=== PATIENT | male | born 1980 | race Caucasian/White ===

== ENCOUNTER 2020-10-23 12:18 | Inpatient (IN) | payer OTHER ==
[~2020-10-23] VITALS: Ht 180.3 cm; Wt 95.9 kg
--- NOTE | 2020-10-23 12:32 | NUR ---
EKG IN TRIAGE
--- NOTE | 2020-10-23 13:00 | NUR ---
LATE ENTRY; 40 YO MALE CAME IN WITH AFTER VISTING URGENT CARE FOR BLOODY NOSE COMPLAINTS THE LAST WEEK, FOUND TO BE HYPERENSIVE SBP IN THE 250'S BY URGENT CARE. PATIENT HOOKED UP TO ALL MONITORS. BLOOD PRESSURE 241/153. MD AWARE AND EVALUATED PATIENT. PATIENT OTHER VITALS STABLE. NO S/S OF STROKE. PATIENT POSTIONED TO COMFORT AND NADN
[2020-10-23 13:23] LABS: BASOPHILS % (AUTO) 1 % (0-1); EOSINOPHILS % (AUTO) 1 % (1-7); LYMPHOCYTES % (AUTO) 7 % (22-44); MEAN CORPUSCULAR HEMOGLOBIN 30.7 pg (27.5-34.5); MEAN CORPUSCULAR HGB CONC 36.1 g/dL (33.2-36.2); MEAN PLATELET VOLUME 7.9 fL (7.4-10.4); MONOCYTES % (AUTO) 4 % (2-9); NEUTROPHILS % (AUTO) 88 % (42-75); PLATELET COUNT 57 x10^3/uL (130-400); RED BLOOD COUNT 2.87 x10^6/uL (4.38-5.82)
[2020-10-23 13:28] LABS: ALBUMIN 3.3 g/dL (3.4-5.0); ANION GAP 15 mmol/L (5-15); CALCIUM 8.4 mg/dL (8.5-10.1); CHLORIDE 94 mmol/L (98-107)
[2020-10-23] MEDS ORDERED: LABETALOL 5MG/ML, 20ML IVPush ONE ×2 (13:30→14:30)
[2020-10-23] MEDS ORDERED: SODIUM CHLORIDE FLUSH 10ML SYR IVF ONE (13:30)
[2020-10-23 13:44] LABS: MD SCAN
[2020-10-23] MEDS ORDERED: SODIUM CHLORIDE 0.9% 1,000ML IVBOLUS ONE (14:00)
[2020-10-23] MEDS ORDERED: POTASSIUM CHLORIDE 40 MEQ in SODIUM CHLORIDE 0.9% 500 ML IV ONE (14:00)
[2020-10-23 14:06] LABS: TROPONIN I 0.297 ng/mL (0.000-0.045)
[2020-10-23 14:19] LABS: MICROSCOPIC AUTO
[2020-10-23] MEDS ORDERED: NITROGLYCERIN OINT 2%, 1GM TP ONE ×2 (14:22→14:30)
[2020-10-23] MEDS ORDERED: LABETALOL 5MG/ML, 20ML ONE (14:22)
[2020-10-23] MEDS ORDERED: hydrALAzine 20 MG/ML, 1ML ONE (14:22)
[2020-10-23] MEDS ORDERED: ASPIRIN 81 MG TABLET CHEW PO ONE (14:30)
[2020-10-23] MEDS ORDERED: hydrALAzine 20 MG/ML, 1ML IV ONE (14:30)
[2020-10-23] MEDS ORDERED: ASPIRIN 81 MG TABLET CHEW ONE (14:33)
--- NOTE | 2020-10-23 14:33 | NUR ---
patient medicated per emar, patient still hypertensive bp 213/131, ultra sound at bedside.
--- NOTE | 2020-10-23 14:47 | NUR ---
REPORT GIVEN TO SHAMA EMANUEL
[2020-10-23] MEDS ORDERED: ONDANSETRON ODT 4 MG PO PRN (15:00)
[2020-10-23] MEDS ORDERED: ONDANSETRON 2MG/ML, 2ML IVPush PRN (15:00)
--- NOTE | 2020-10-23 15:20 | NUR ---
NITRO PASTE REMOVED PER HOSPITALIST AFTER PATIENT COMPLAINTS OF N/V AND DIZZINESS.
[2020-10-23] MEDS ORDERED: NITROGLYCERIN OINT 2%, 1GM TP PRN (15:30)
[2020-10-23 15:32] LABS: TROPONIN I 0.284 ng/mL (0.000-0.045)
[2020-10-23 15:37] VITALS: BP 162/88
[2020-10-23 15:50] VITALS: BP 168/88
[2020-10-23 18:00] VITALS: BP 184/104
[2020-10-23 18:15] VITALS: BP 175/96
[2020-10-23] MEDS: hydrALAzine 20 MG/ML, 1ML IV PRN (18:18)
[2020-10-23 18:54] LABS: CALCIUM 8.5 mg/dL (8.5-10.1)
[2020-10-23] MEDS: ACETAMINOPHEN 325 MG TABLET PO PRN (20:01)
[2020-10-23 20:47] VITALS: BP 157/77
[2020-10-23] MEDS: LOSARTAN 50MG TABLET PO SCH (21:19)
[2020-10-23] MEDS: POTASSIUM CHLORIDE 20 MEQ TAB.ER.PRT PO SCH (21:19)
[2020-10-23 23:57] LABS: MICROSCOPIC AUTO
[2020-10-24 00:07] LABS: CHLORIDE,URINE RANDOM 41 mmol/L; POTASSIUM,URINE RANDOM 22 mmol/L; SODIUM,URINE RANDOM 41 mmol/L
[2020-10-24 00:21] VITALS: BP 170/103
[2020-10-24] MEDS: LABETALOL 5MG/ML, 20ML IVPush PRN (00:40)
[2020-10-24] MEDS: ACETAMINOPHEN 325 MG TABLET PO PRN (04:17)
[2020-10-24 04:58] VITALS: BP 137/79
[2020-10-24 05:07] LABS: BASOPHILS % (AUTO) 0 % (0-1); EOSINOPHILS % (AUTO) 0 % (1-7); LYMPHOCYTES % (AUTO) 9 % (22-44); MEAN CORPUSCULAR HEMOGLOBIN 31.1 pg (27.5-34.5); MEAN CORPUSCULAR HGB CONC 35.9 g/dL (33.2-36.2); MEAN PLATELET VOLUME 7.7 fL (7.4-10.4); MONOCYTES % (AUTO) 4 % (2-9); NEUTROPHILS % (AUTO) 86 % (42-75); PLATELET COUNT 65 x10^3/uL (130-400); RED BLOOD COUNT 2.48 x10^6/uL (4.38-5.82); RED CELL DISTRIBUTION WIDTH 16.5 % (9.4-14.8)
[2020-10-24 05:20] LABS: INTERNATIONAL NORMALIZED RATIO 1.08 (0.93-1.1); PROTHROMBIN TIME 11.5 Seconds (9.6-11.5)
[2020-10-24 05:23] LABS: ANION GAP 12 mmol/L (5-15); CALCIUM 8.1 mg/dL (8.5-10.1); CHLORIDE 98 mmol/L (98-107); MD NO
[2020-10-24 05:38] LABS: % IRON SATURATION 18 % (20-55); ALANINE AMINOTRANSFERASE 15 U/L (12-78); ALBUMIN 2.8 g/dL (3.4-5.0); ALKALINE PHOSPHATASE 60 U/L (45-117); BILIRUBIN,TOTAL 0.8 mg/dL (0.2-1.0); CREATININE 8.43 mg/dL (0.7-1.3); IRON LEVEL 43 mcg/dL (65-175); TOTAL IRON BINDING CAPACITY 245 mcg/dL (250-450); TOTAL PROTEIN 6.1 g/dL (6.4-8.2)
[2020-10-24 06:15] VITALS: BP 146/83
[2020-10-24] MEDS: POTASSIUM CHLORIDE 20 MEQ TAB.ER.PRT PO SCH ×2 (08:02→17:09)
[2020-10-24] MEDS: LOSARTAN 50MG TABLET PO SCH ×2 (08:03→21:52)
[2020-10-24] MEDS: CALCITRIOL 0.25 MCG CAPSULE PO SCH (13:47)
[2020-10-24] MEDS: MULTIVITS,STRESS FORMULA 1 TABLET PO SCH (13:47)
[2020-10-24] MEDS: ERGOCALCIFEROL 50,000 UNIT CAPSULE PO SCH (13:48)
[2020-10-24] MEDS: AMLODIPINE 5 MG TABLET PO SCH ×2 (13:48→21:52)
[2020-10-24] MEDS: IRON SUCROSE COMPLEX 100MG/5ML IV SCH (13:48)
[2020-10-24 13:55] VITALS: BP 133/83
[2020-10-24 14:43] LABS: MICROSCOPIC INDICATED
[2020-10-24 14:49] LABS: CREATININE,URINE RANDOM 86.2 mg/dL
[2020-10-24 17:54] LABS: ANA SCREEN NEGATIVE (Negative)
[2020-10-24 19:20] VITALS: BP 157/93
[2020-10-24 21:51] VITALS: BP 155/97
[2020-10-24] MEDS: TRAZODONE 50MG TABLET PO PRN (21:52)
[2020-10-25 02:35] VITALS: BP 162/97
[2020-10-25 05:45] LABS: BASOPHILS % (AUTO) 1 % (0-1); EOSINOPHILS % (AUTO) 3 % (1-7); LYMPHOCYTES % (AUTO) 19 % (22-44); MEAN CORPUSCULAR HEMOGLOBIN 30.8 pg (27.5-34.5); MEAN CORPUSCULAR HGB CONC 34.4 g/dL (33.2-36.2); MEAN PLATELET VOLUME 8.5 fL (7.4-10.4); MONOCYTES % (AUTO) 8 % (2-9); NEUTROPHILS % (AUTO) 69 % (42-75); PLATELET COUNT 112 x10^3/uL (130-400); RED BLOOD COUNT 2.64 x10^6/uL (4.38-5.82); RED CELL DISTRIBUTION WIDTH 16.3 % (9.4-14.8)
[2020-10-25 05:47] LABS: MD NO
[2020-10-25 05:56] LABS: CHLORIDE 100 mmol/L (98-107)
[2020-10-25 06:13] LABS: ALBUMIN 2.7 g/dL (3.4-5.0); ANION GAP 8 mmol/L (5-15); CALCIUM 8.2 mg/dL (8.5-10.1); CREATININE 7.12 mg/dL (0.7-1.3)
[2020-10-25 08:03] VITALS: BP 167/109
[2020-10-25 12:39] VITALS: BP 163/99
[2020-10-25] MEDS: AMLODIPINE 5 MG TABLET PO SCH ×2 (12:50→20:07)
[2020-10-25] MEDS: CALCITRIOL 0.25 MCG CAPSULE PO SCH (12:51)
[2020-10-25] MEDS: LOSARTAN 50MG TABLET PO SCH ×2 (12:51→20:07)
[2020-10-25] MEDS: IRON SUCROSE COMPLEX 100MG/5ML IV SCH (12:51)
[2020-10-25] MEDS: MULTIVITS,STRESS FORMULA 1 TABLET PO SCH (12:51)
[2020-10-25] MEDS: POTASSIUM CHLORIDE 20 MEQ TAB.ER.PRT PO SCH ×2 (12:51→17:00)
[2020-10-25 19:15] VITALS: BP 176/117
[2020-10-25 20:03] VITALS: BP 184/122
[2020-10-25] MEDS: TRAZODONE 50MG TABLET PO PRN (21:43)
[2020-10-25 21:45] VITALS: BP_SYST 182; BP_SYST 199; BP_DIAS 105; BP_DIAS 131
[2020-10-25] MEDS: hydrALAzine 20 MG/ML, 1ML IV PRN (21:56)
[2020-10-25] MEDS: LABETALOL 5MG/ML, 20ML IVPush PRN (22:58)
[2020-10-26] VITALS (11 sets, daily range): BP systolic 123–180; BP diastolic 70–114
[2020-10-26 05:26] LABS: ALBUMIN 2.9 g/dL (3.4-5.0); ANION GAP 6 mmol/L (5-15); CALCIUM 8.6 mg/dL (8.5-10.1); CHLORIDE 100 mmol/L (98-107); CREATININE 5.95 mg/dL (0.7-1.3)
[2020-10-26] MEDS: CALCITRIOL 0.25 MCG CAPSULE PO SCH (08:59)
[2020-10-26] MEDS: MULTIVITS,STRESS FORMULA 1 TABLET PO SCH (08:59)
[2020-10-26] MEDS: AMLODIPINE 5 MG TABLET PO SCH (08:59)
[2020-10-26] MEDS: LOSARTAN 50MG TABLET PO SCH ×2 (08:59→20:57)
[2020-10-26] MEDS: IRON SUCROSE COMPLEX 100MG/5ML IV SCH (08:59)
[2020-10-26] MEDS: POTASSIUM CHLORIDE 20 MEQ TAB.ER.PRT PO SCH ×2 (08:59→16:34)
[2020-10-26] MEDS: LABETALOL 5MG/ML, 20ML IVPush PRN (09:45)
[2020-10-26] MEDS: FUROSEMIDE 80 MG TABLET PO SCH (11:23)
[2020-10-26] MEDS: LABETALOL 200 MG TABLET PO SCH ×2 (11:24→20:57)
[2020-10-26] MEDS: AMLODIPINE 10 MG TAB PO SCH (20:57)
[2020-10-27 01:13] VITALS: BP 132/72
[2020-10-27 05:15] LABS: BASOPHILS % (AUTO) 1 % (0-1); EOSINOPHILS % (AUTO) 5 % (1-7); LYMPHOCYTES % (AUTO) 15 % (22-44); MEAN CORPUSCULAR HGB CONC 34.3 g/dL (33.2-36.2); MEAN PLATELET VOLUME 7.9 fL (7.4-10.4); MONOCYTES % (AUTO) 5 % (2-9); NEUTROPHILS % (AUTO) 74 % (42-75); PLATELET COUNT 146 x10^3/uL (130-400); RED BLOOD COUNT 2.48 x10^6/uL (4.38-5.82); RED CELL DISTRIBUTION WIDTH 16.1 % (9.4-14.8)
[2020-10-27 05:21] LABS: ALBUMIN 2.7 g/dL (3.4-5.0); CALCIUM 8.5 mg/dL (8.5-10.1); CHLORIDE 98 mmol/L (98-107); MD NO
[2020-10-27 05:24] LABS: ANION GAP 10 mmol/L (5-15); CREATININE 7.92 mg/dL (0.7-1.3)
[2020-10-27 06:51] VITALS: BP 150/79
[2020-10-27] MEDS ORDERED: FENTANYL PF 100 MCG/2ML ONE ×3 (08:36→11:02)
[2020-10-27] MEDS ORDERED: FLUMAZENIL 0.1 MG/1 ML, 5ML ONE ×2 (08:36→11:02)
[2020-10-27] MEDS ORDERED: MIDAZOLAM 1 MG/ML, 5ML ONE ×2 (08:36→11:02)
[2020-10-27] MEDS ORDERED: NALOXONE 1 MG/ML, 2ML ONE ×2 (08:36→11:02)
[2020-10-27 10:15] VITALS: BP 143/88
[2020-10-27] MEDS: CALCITRIOL 0.25 MCG CAPSULE PO SCH (10:32)
[2020-10-27] MEDS: POTASSIUM CHLORIDE 20 MEQ TAB.ER.PRT PO SCH (10:32)
[2020-10-27] MEDS: MULTIVITS,STRESS FORMULA 1 TABLET PO SCH (10:33)
[2020-10-27] MEDS: FUROSEMIDE 80 MG TABLET PO SCH (10:33)
[2020-10-27] MEDS ORDERED: LIDOCAINE 1%, 20ML ONE (11:07)
[2020-10-27] MEDS ORDERED: LIDOCAINE 1%, 10ML ONE (11:07)
[2020-10-27] MEDS ORDERED: CEFAZOLIN PMX 1GM/50ML 50 ML ONE (11:11)
[2020-10-27 12:08] VITALS: BP 145/76
[2020-10-27] MEDS: LOSARTAN 50MG TABLET PO SCH ×2 (15:26→20:21)
[2020-10-27] MEDS: AMLODIPINE 10 MG TAB PO SCH ×2 (15:27→20:21)
[2020-10-27] MEDS: LABETALOL 200 MG TABLET PO SCH ×2 (15:27→20:21)
[2020-10-27 19:56] VITALS: BP 123/87
[2020-10-27] MEDS: TRAZODONE 50MG TABLET PO PRN (21:36)
[2020-10-28] VITALS (8 sets, daily range): BP systolic 107–156; BP diastolic 68–89
[2020-10-28 04:39] LABS: BASOPHILS % (AUTO) 1 % (0-1); EOSINOPHILS % (AUTO) 5 % (1-7); LYMPHOCYTES % (AUTO) 17 % (22-44); MEAN CORPUSCULAR HEMOGLOBIN 31.1 pg (27.5-34.5); MEAN CORPUSCULAR HGB CONC 34.5 g/dL (33.2-36.2); MEAN PLATELET VOLUME 7.5 fL (7.4-10.4); MONOCYTES % (AUTO) 7 % (2-9); NEUTROPHILS % (AUTO) 70 % (42-75); PLATELET COUNT 170 x10^3/uL (130-400); RED BLOOD COUNT 2.53 x10^6/uL (4.38-5.82); RED CELL DISTRIBUTION WIDTH 16.2 % (9.4-14.8)
[2020-10-28 04:41] LABS: MD NO
[2020-10-28 04:47] LABS: ALANINE AMINOTRANSFERASE 22 U/L (12-78); ALBUMIN 2.7 g/dL (3.4-5.0); ANION GAP 7 mmol/L (5-15); CALCIUM 7.8 mg/dL (8.5-10.1); CHLORIDE 99 mmol/L (98-107); CREATININE 5.65 mg/dL (0.7-1.3)
[2020-10-28 04:49] LABS: ALKALINE PHOSPHATASE 48 U/L (45-117); BILIRUBIN,TOTAL 0.3 mg/dL (0.2-1.0); TOTAL PROTEIN 5.6 g/dL (6.4-8.2)
[2020-10-28] MEDS: MULTIVITS,STRESS FORMULA 1 TABLET PO SCH (09:19)
[2020-10-28] MEDS: CALCITRIOL 0.25 MCG CAPSULE PO SCH (09:19)
[2020-10-28] MEDS: FUROSEMIDE 80 MG TABLET PO SCH (09:19)
[2020-10-28] MEDS: AMLODIPINE 10 MG TAB PO SCH ×2 (10:57→20:38)
[2020-10-28] MEDS: LOSARTAN 50MG TABLET PO SCH (20:38)
[2020-10-28] MEDS: LABETALOL 100 MG TABLET PO SCH (20:39)
[2020-10-28] MEDS ORDERED: LABETALOL 200 MG TABLET PO SCH (21:00)
[2020-10-28] MEDS: TRAZODONE 50MG TABLET PO PRN (22:03)
[2020-10-29 01:32] VITALS: BP 130/72
[2020-10-29 07:15] VITALS: BP 118/71
[2020-10-29] MEDS: LOSARTAN 50MG TABLET PO SCH ×2 (09:00→19:56)
[2020-10-29] MEDS: LABETALOL 100 MG TABLET PO SCH ×2 (09:00→19:54)
[2020-10-29] MEDS: MULTIVITS,STRESS FORMULA 1 TABLET PO SCH (09:34)
[2020-10-29] MEDS: AMLODIPINE 10 MG TAB PO SCH ×2 (09:34→19:56)
[2020-10-29] MEDS: CALCITRIOL 0.25 MCG CAPSULE PO SCH (09:34)
[2020-10-29] MEDS: FUROSEMIDE 80 MG TABLET PO SCH (09:35)
[2020-10-29 12:32] VITALS: BP 132/80
[2020-10-29 19:43] VITALS: BP 168/82
[2020-10-29 22:29] VITALS: BP 138/78
[2020-10-29] MEDS: TRAZODONE 50MG TABLET PO PRN (22:33)
[2020-10-30 00:08] VITALS: BP 135/75
[2020-10-30 06:29] LABS: BASOPHILS % (AUTO) 1 % (0-1); EOSINOPHILS % (AUTO) 6 % (1-7); LYMPHOCYTES % (AUTO) 19 % (22-44); MEAN CORPUSCULAR HEMOGLOBIN 31.5 pg (27.5-34.5); MEAN CORPUSCULAR HGB CONC 34.4 g/dL (33.2-36.2); MEAN PLATELET VOLUME 7.7 fL (7.4-10.4); MONOCYTES % (AUTO) 8 % (2-9); NEUTROPHILS % (AUTO) 67 % (42-75); PLATELET COUNT 188 x10^3/uL (130-400); RED BLOOD COUNT 2.42 x10^6/uL (4.38-5.82); RED CELL DISTRIBUTION WIDTH 16.2 % (9.4-14.8)
[2020-10-30 06:36] LABS: ALBUMIN 2.8 g/dL (3.4-5.0); ANION GAP 11 mmol/L (5-15); CALCIUM 8.3 mg/dL (8.5-10.1); CHLORIDE 99 mmol/L (98-107)
[2020-10-30 06:48] LABS: % IRON SATURATION 23 % (20-55); CREATININE 9.03 mg/dL (0.7-1.3); IRON LEVEL 64 mcg/dL (65-175); TOTAL IRON BINDING CAPACITY 273 mcg/dL (250-450)
[2020-10-30 06:50] LABS: MD NO
[2020-10-30 06:51] VITALS: BP 138/81
[2020-10-30] MEDS: LABETALOL 100 MG TABLET PO SCH ×2 (09:41→21:27)
[2020-10-30] MEDS: FUROSEMIDE 80 MG TABLET PO SCH (09:42)
[2020-10-30] MEDS: CALCITRIOL 0.25 MCG CAPSULE PO SCH (09:42)
[2020-10-30] MEDS: MULTIVITS,STRESS FORMULA 1 TABLET PO SCH (09:42)
[2020-10-30] MEDS: AMLODIPINE 10 MG TAB PO SCH ×2 (09:42→21:28)
[2020-10-30] MEDS: LOSARTAN 50MG TABLET PO SCH ×2 (09:42→21:28)
[2020-10-30] MEDS ORDERED: MIDAZOLAM 1 MG/ML, 5ML ONE (11:03)
[2020-10-30] MEDS ORDERED: FENTANYL PF 100 MCG/2ML ONE (11:03)
[2020-10-30] MEDS ORDERED: FLUMAZENIL 0.1 MG/1 ML, 5ML ONE (11:03)
[2020-10-30] MEDS ORDERED: NALOXONE 1 MG/ML, 2ML ONE (11:03)
[2020-10-30] MEDS ORDERED: LIDOCAINE 1%, 10ML ONE (11:21)
[2020-10-30 12:19] VITALS: BP 129/81
[2020-10-30 19:20] VITALS: BP 147/82
[2020-10-30 21:24] VITALS: BP 125/71
[2020-10-30] MEDS: ACETAMINOPHEN 325 MG TABLET PO PRN (21:49)
[2020-10-30 22:47] VITALS: BP 114/70
[2020-10-31 00:37] VITALS: BP 123/75
[2020-10-31 05:59] LABS: BASOPHILS % (AUTO) 1 % (0-1); EOSINOPHILS % (AUTO) 5 % (1-7); LYMPHOCYTES % (AUTO) 19 % (22-44); MEAN CORPUSCULAR HEMOGLOBIN 31.2 pg (27.5-34.5); MEAN CORPUSCULAR HGB CONC 33.9 g/dL (33.2-36.2); MEAN PLATELET VOLUME 7.9 fL (7.4-10.4); MONOCYTES % (AUTO) 9 % (2-9); NEUTROPHILS % (AUTO) 67 % (42-75); PLATELET COUNT 208 x10^3/uL (130-400); RED CELL DISTRIBUTION WIDTH 16.4 % (9.4-14.8)
[2020-10-31 06:00] LABS: MD NO
[2020-10-31 06:38] VITALS: BP 124/74
[2020-10-31 09:10] VITALS: BP 135/78
[2020-10-31] MEDS: LOSARTAN 50MG TABLET PO SCH ×2 (09:13→21:18)
[2020-10-31] MEDS: AMLODIPINE 10 MG TAB PO SCH ×2 (09:13→21:18)
[2020-10-31] MEDS: LABETALOL 100 MG TABLET PO SCH ×2 (09:14→21:18)
[2020-10-31] MEDS: CALCITRIOL 0.25 MCG CAPSULE PO SCH (09:15)
[2020-10-31] MEDS: ERGOCALCIFEROL 50,000 UNIT CAPSULE PO SCH (09:15)
[2020-10-31] MEDS: MULTIVITS,STRESS FORMULA 1 TABLET PO SCH (09:16)
[2020-10-31] MEDS: FUROSEMIDE 80 MG TABLET PO SCH (09:16)
[2020-10-31 12:14] VITALS: BP 138/75
[2020-10-31 20:46] VITALS: BP 152/85
[2020-10-31] MEDS: TRAZODONE 50MG TABLET PO PRN (23:42)
[2020-10-31] MEDS: ACETAMINOPHEN 325 MG TABLET PO PRN (23:44)
[2020-11-01 00:46] VITALS: BP 128/76
[2020-11-01 08:37] VITALS: BP 149/97
[2020-11-01 13:31] VITALS: BP 148/93
[2020-11-01] MEDS: CALCITRIOL 0.25 MCG CAPSULE PO SCH (13:45)
[2020-11-01] MEDS: SEVELAMER CARBONATE 800MG TAB PO SCH ×2 (13:45→18:03)
[2020-11-01] MEDS: LOSARTAN 50MG TABLET PO SCH ×2 (13:45→23:10)
[2020-11-01] MEDS: MULTIVITS,STRESS FORMULA 1 TABLET PO SCH (13:46)
[2020-11-01] MEDS: FUROSEMIDE 80 MG TABLET PO SCH (13:46)
[2020-11-01] MEDS: AMLODIPINE 10 MG TAB PO SCH ×2 (13:46→23:09)
[2020-11-01] MEDS: LABETALOL 100 MG TABLET PO SCH ×2 (13:46→23:10)
[2020-11-01 18:55] VITALS: BP 131/76
[2020-11-01 23:08] VITALS: BP 128/73
[2020-11-02 02:00] VITALS: BP 130/68
[2020-11-02 07:07] VITALS: BP 132/76
[2020-11-02] MEDS: LABETALOL 100 MG TABLET PO SCH ×2 (09:53→21:12)
[2020-11-02] MEDS: SEVELAMER CARBONATE 800MG TAB PO SCH ×3 (09:53→18:19)
[2020-11-02] MEDS: LOSARTAN 50MG TABLET PO SCH ×2 (09:56→21:12)
[2020-11-02] MEDS: CALCITRIOL 0.25 MCG CAPSULE PO SCH (09:57)
[2020-11-02] MEDS: AMLODIPINE 10 MG TAB PO SCH ×2 (09:57→21:11)
[2020-11-02] MEDS: MULTIVITS,STRESS FORMULA 1 TABLET PO SCH (09:57)
[2020-11-02] MEDS: FUROSEMIDE 80 MG TABLET PO SCH (09:57)
[2020-11-02 12:12] VITALS: BP 136/78
[2020-11-02] MEDS ORDERED: DARBEPOETIN 100 MCG/ML SQ SCH (14:00)
[2020-11-02] MEDS ORDERED: ACETAMINOPHEN 325 MG TABLET PO PRN (15:00)
[2020-11-02] MEDS ORDERED: ONDANSETRON 2MG/ML, 2ML IV PRN (15:00)
[2020-11-02] MEDS ORDERED: LACTATED RINGERS 1,000 ML IV SCH (15:00)
[2020-11-02] MEDS ORDERED: ATORVASTATIN 40 MG TABLET PO SCH (21:00)
[2020-11-02] MEDS ORDERED: ZOLPIDEM 5MG TABLET PO PRN (21:00)
[2020-11-02] MEDS: HEPARIN 5,000 UNITS/ML, 1ML SQ SCH (21:12)
[2020-11-02 21:53] VITALS: BP 160/90
[2020-11-03 01:27] VITALS: BP 137/74
[2020-11-03] MEDS: HEPARIN 5,000 UNITS/ML, 1ML SQ SCH ×2 (04:00→12:40)
[2020-11-03] MEDS ORDERED: HEPARIN 5,000 UNITS/ML, 1ML SQ SCH (06:00)
[2020-11-03 07:37] VITALS: BP 131/78
[2020-11-03] MEDS: SEVELAMER CARBONATE 800MG TAB PO SCH ×2 (08:00→12:32)
[2020-11-03] MEDS: LOSARTAN 50MG TABLET PO SCH ×2 (09:00→12:34)
[2020-11-03] MEDS ORDERED: AMITRIPTYLINE 25 MG TABLET PO SCH (09:00)
[2020-11-03] MEDS ORDERED: CLOPIDOGREL 75 MG TABLET PO SCH (09:00)
[2020-11-03] MEDS ORDERED: TRIAMTERENE-HCTZ 37.5/25 MG TABLET PO SCH (09:00)
[2020-11-03] MEDS ORDERED: CHOLECALCIFEROL 1,000 UNIT TABLET PO SCH (09:00)
[2020-11-03] MEDS ORDERED: LOSARTAN 50MG TABLET PO SCH (09:00)
[2020-11-03] MEDS ORDERED: LABE100T6 PO (12:18)
[2020-11-03] MEDS ORDERED: SEVE800T8 PO (12:18)
[2020-11-03] MEDS ORDERED: LOSA50TA2 PO (12:18)
[2020-11-03] MEDS ORDERED: AMLO-211 PO (12:18)
[2020-11-03] MEDS ORDERED: FURO80TA3 PO (12:18)
[2020-11-03] MEDS ORDERED: CALC0.25 PO (12:18)
[2020-11-03] MEDS ORDERED: ERGO500017 PO (12:18)
[2020-11-03] MEDS: LABETALOL 100 MG TABLET PO SCH (12:33)
[2020-11-03] MEDS: CALCITRIOL 0.25 MCG CAPSULE PO SCH (12:33)
[2020-11-03] MEDS: AMLODIPINE 10 MG TAB PO SCH (12:34)
[2020-11-03] MEDS: MULTIVITS,STRESS FORMULA 1 TABLET PO SCH (12:34)
[2020-11-03] MEDS: FUROSEMIDE 80 MG TABLET PO SCH (12:34)
[2020-11-03 12:36] VITALS: BP 145/80
== END 2020-11-03 16:36 | disposition left against medical advice (07) | DRG 674 ==
LOC: ED 13:37 → EDIP 14:21 → SUATTDRO 14:22 → 4WST 15:28 → 4NW 11-02 15:55 → 4WST 11-02 15:55 → DCLOUNGE 11-03 16:20
PROVIDERS: ADMIT Hospitalist; ATTEND Hospitalist
PROC: 02HV33Z Insertion of Infusion Device into Superior Vena Cava, Percutaneous Approach (ICD-10-PCS; 2020-10-23)
PROC: B548ZZA Ultrasonography of Superior Vena Cava, Guidance (ICD-10-PCS; 2020-10-23)
PROC: 0JH63XZ Insertion of Tunneled Vascular Access Device into Chest Subcutaneous Tissue and Fascia, Percutaneous Approach (ICD-10-PCS; 2020-10-27)
PROC: 02HV33Z Insertion of Infusion Device into Superior Vena Cava, Percutaneous Approach (ICD-10-PCS; 2020-10-27)
PROC: B5181ZA Fluoroscopy of Superior Vena Cava using Low Osmolar Contrast, Guidance (ICD-10-PCS; 2020-10-27)
PROC: B548ZZA Ultrasonography of Superior Vena Cava, Guidance (ICD-10-PCS; 2020-10-27)
PROC: 0TB13ZX Excision of Left Kidney, Percutaneous Approach, Diagnostic (ICD-10-PCS; principal; 2020-10-30)
PROC: 5A1D70Z Performance of Urinary Filtration, Intermittent, Less than 6 Hours Per Day (ICD-10-PCS; 2020-10-31)
PROC: 5A1D70Z Performance of Urinary Filtration, Intermittent, Less than 6 Hours Per Day (ICD-10-PCS; 2020-11-01)
DX: N17.9 Acute kidney failure, unspecified (principal); I16.1 Hypertensive emergency; I50.30 Unspecified diastolic (congestive) heart failure; I13.2 Hypertensive heart and chronic kidney disease with heart failure and with stage 5 chronic kidney disease, or end stage renal disease; N18.6 End stage renal disease; D63.1 Anemia in chronic kidney disease; D69.6 Thrombocytopenia, unspecified; D72.829 Elevated white blood cell count, unspecified; E21.3 Hyperparathyroidism, unspecified; R31.29 Other microscopic hematuria; I77.6 Arteritis, unspecified; Z20.822 Contact with and (suspected) exposure to COVID-19; M35.9 Systemic involvement of connective tissue, unspecified; M54.9 Dorsalgia, unspecified; E87.6 Hypokalemia; R04.0 Epistaxis; Z59.0 Homelessness; Z82.49 Family history of ischemic heart disease and other diseases of the circulatory system; Z91.19 Patient's noncompliance with other medical treatment and regimen; Z99.2 Dependence on renal dialysis; Z91.041 Radiographic dye allergy status; Z53.29 Procedure and treatment not carried out because of patient's decision for other reasons
CPT/HCPCS: 36415; 77001; 84155; 84156; 87806; 96361; 96374; 96375; 99291; J3490; 36556; 36558; 50200; 71045; 76770; 76937; 77012; 80048; 80053; 80069; 81001; 82040; 82088; 82306; 82310; 82330; 82436; 82550; 82570; 82728; 83516; 83520; 83540; 83550; 83735; 83880; 83935; 83970; 84100; 84133; 84165; 84166; 84244; 84300; 84484; 84550; 85014; 85018; 85025; 85397; 85610; 85730; 86038; 86063; 86160; 86162; 86225; 86256; 86480; 86705; 86706; 86803; 87205; 87340; 88300; 90935; 93005; 93306; 99156; 99157; G0378; J0690; J0881; J1644; J1756; J2250; J3010; J3480; C1750; C1751; G0365; G0475; J0360; J1642; J2310; J7030; J7040